=== PATIENT | female | born 1970 | race Caucasian/White ===

== ENCOUNTER 2021-02-08 15:04 | Emergency (ER) | payer OTHER ==
[~2021-02-08 15:04] MED LIST: AZITHROMYCIN250 MG PO; MEDROL 4MG DOSEP4 MG PO
[2021-02-08 16:25] LABS: BASOPHIL 0 % (0-2); EOSINOPHIL 2.3 % (0-5); HCT 40.7 % (37.0-47.0); HGB 12.4 g/dl (12.5-16.0); MCH 27.6 pg (25.0-31.0); MCHC 30.5 g/dL (32.0-36.0); MCV 90.6 fL (78.0-100.0); MONOCYTE 11.1 % (0-12); MPV 10.4 fL (6.0-9.5); NRBC 0; PLT 186 K/uL (150-400); RBC 4.49 M/uL (4.20-5.40); RDW 15.3 % (11.5-14.0); WBC 4.7 K/uL (4.0-10.5)
[2021-02-08 16:48] LABS: BUN/CREAT RATIO (CALC) 13.5 RATIO; CREATININE 0.74 mg/dL (0.51-0.95); POTASSIUM 4.1 mmol/L (3.5-5.1)
== END 2021-02-08 19:21 | disposition home or self-care (01) ==
LOC: FER 15:04
PROVIDERS: Nurse Practitioner Family
DX: U07.1 COVID-19 (principal); J12.82 Pneumonia due to coronavirus disease 2019; Z23 Encounter for immunization
CPT/HCPCS: 36415; 71045; 80048; 85025; M0243; Q0244